=== PATIENT | female | born 1990 | race Caucasian/White ===

== ENCOUNTER 2019-06-22 06:28 | Emergency (ER) | payer OTHER ==
[~2019-06-22] VITALS: Ht 154.9 cm; Wt 79.4 kg
[2019-06-22 06:37] VITALS: Ht 154.9 cm; Wt 79.4 kg
[2019-06-22 09:20] VITALS: BP 115/64
== END 2019-06-22 09:20 | disposition home or self-care (01) ==
LOC: ED 06:28
DX: J11.1 Influenza due to unidentified influenza virus with other respiratory manifestations (principal); J40 Bronchitis, not specified as acute or chronic
CPT/HCPCS: 87804